=== PATIENT | female | born 1960 | race American Indian/Alaskan Native ===

== ENCOUNTER 2017-02-04 21:26 | Emergency (ER) | payer MEDICAID ==
[2017-02-04 21:26] VITALS: BMI 21.9
[2017-02-04 21:44] VITALS: BP 152/85; PULSE 110; RESP 20; TEMP 98.3; O2SAT 98
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
--- NOTE | 2017-02-05 08:51 | RAD ---
PROCEDURE: Cervical Spine Radiographs. HISTORY: Pain. COMPARISON: None. FINDINGS: BONES: Alignment maintained. No fracture. Dens Intact. DISC SPACES: Normal. SOFT TISSUES: Normal. No prevertebral soft tissue swelling. OTHER FINDINGS: None. IMPRESSION: Normal cervical spine radiographs
--- NOTE | 2017-02-05 08:52 | RAD ---
PROCEDURE: Radiographs of the pelvis and bilateral hips HISTORY: right hip pain COMPARISON: None. FINDINGS: BONES: Pelvis: Unremarkable. Right hip:There is a right hip prosthesis. There is no loosening or displacement Left hip:Unremarkable. JOINTS: Right hip: Unremarkable. Left hip: Unremarkable. Sacroiliac Joints: Unremarkable. Pubic symphysis: Unremarkable. SOFT TISSUES: Normal. OTHER FINDINGS: None. IMPRESSION: Unremarkable radiographs of the hips and pelvis.
== END 2017-02-05 01:26 | disposition home or self-care (01) ==
LOC: ED 21:26
DX: S16.1XXA Strain of muscle, fascia and tendon at neck level, initial encounter (principal); V79.9XXA Bus occupant (driver) (passenger) injured in unspecified traffic accident, initial encounter; M25.551 Pain in right hip; F17.200 Nicotine dependence, unspecified, uncomplicated; I10 Essential (primary) hypertension
CPT/HCPCS: 72050; 73522; 96372; 99285; J1885

== ENCOUNTER 2018-04-28 16:39 | Outpatient (CLI) | payer MEDICAID | END 2018-04-28 16:40 | disposition home or self-care (01) | LOC: LAB 16:39 ==

== ENCOUNTER 2018-05-24 09:45 | Emergency (ER) | payer MEDICAID ==
[2018-05-24 10:12] VITALS: TEMP 98
[2018-05-24] MEDS ORDERED: Oxymetazoline 0.05% Nasal Spray (30 ml) NS STA (10:16)
--- NOTE | 2018-05-24 10:24 | ED PDOC ---
Arrival/HPI - General Chief Complaint: ENT Problem Time Seen by Provider: 05/24/18 09:55 Historian: Patient - History of Present Illness Narrative History of Present Illness (Text): 05/24/18 10:21 57 year old female, with past medical history of seizure and asthma, presents to the ED for evaluation of epistaxis since past 1 hour. Patient reports waking with the symptoms and denies any trauma or irritation to the nares prior to onset. She denies being on any blood thinners or having family hx of coagulation disorders. Patient denies any other associated somatic complaints. Patient denies any fevers, chills, headache, dizziness, chest pain, shortness of breath, dyspnea on exertion, cough, abdominal pain, nausea, vomiting, diarrhea, back pain, neck pain, or any other complaints. PMD: Dr. Bennett Time/Duration: 1 hour Symptom Onset: Gradual Symptom Course: Unchanged Activities at Onset: Light Context: Home Past Medical History - Provider Review Nursing Documentation Reviewed: Yes - Infectious Disease Hx of Infectious Diseases: None - Tetanus Immunization Tetanus Immunization: Unknown - Past Medical History Past Medical History: Non-Contributing - Cardiac Hx Hypertension: Yes - Pulmonary Hx Chronic Obstructive Pulmonary Disease (COPD): Yes - Neurological Hx Seizures: Yes - HEENT Hx Cataracts: Yes - Renal Hx Kidney Stones: Yes - Endocrine/Metabolic Hx Endocrine Disorders: No - Hematological/Oncological Hx Anemia: Yes - Integumentary Hx Eczema: Yes - Musculoskeletal/Rheumatological Hx Back Pain: Yes Hx Falls: Yes Hx Fractures: Yes Hx Gout: Yes - Gastrointestinal Hx Gastrointestinal Disorders: Yes Hx Constipation: Yes Other/Comment: Umbilical hernia. - Genitourinary/Gynecological Hx Incontinence: Yes Hx Urinary Tract Infection: Yes - Psychiatric Hx Anxiety: Yes Hx Depression: Yes Hx Substance Use: No - Past Surgical History Past Surgical History: Non-Contributing - Surgical History Other/Comment: umbilical hernia - Anesthesia Hx Anesthesia: Yes Hx Anesthesia Reactions: No Hx Malignant Hyperthermia: No - Suicidal Assessment Feels Threatened In Home Enviroment: No Family/Social History - Physician Review Nursing Documentation Reviewed: Yes Family/Social History: No Known Family HX Smoking Status: Current Some Days Smoker Hx Alcohol Use: No Hx Substance Use: No Hx Substance Use Treatment: No Allergies/Home Meds Allergies/Adverse Reactions: Allergies chocolate flavor Allergy (Verified 05/24/18 10:12) ITCHING egg Allergy (Verified 05/24/18 10:12) ITCHING FISH Allergy (Verified 05/24/18 10:12) ANAPHYLAXIS lemon Allergy (Verified 05/24/18 10:12) VOMITING orange Allergy (Verified 05/24/18 10:12) ITCHING shellfish derived Allergy (Verified 05/24/18 10:12) ANAPHYLAXIS tomato Allergy (Verified 05/24/18 10:12) HEADACHE Home Medications: Home Meds Medication Instructions Recorded Confirmed RX: Divalproex [Depakote DR 250 mg PO HS 04/18/13 07/29/17 (*BID*)] RX: Montelukast [Singulair] 10 mg PO DAILY 10/18/14 07/29/17 Albuterol HFA [Ventolin HFA 90 1 puff IH BID 07/29/17 07/29/17 mcg/actuation (8 g)] Allopurinol [Zyloprim] 100 mg PO DAILY 07/29/17 07/29/17 Alprazolam [Xanax] 0.25 mg PO TID 07/29/17 07/29/17 Cefdinir [Omnicef] 300 mg PO Q12 07/29/17 07/29/17 Cyclobenzaprine [Cyclobenzaprine 10 mg PO TID 07/29/17 07/29/17 HCl] Fluticasone/Salmeterol 250/50 1 dsk IH DAILY 07/29/17 07/29/17 [Advair Diskus] Gabapentin [Neurontin] 300 mg PO TID 07/29/17 07/29/17 Ketoconazole 2% Shampoo [Nizoral 1 bottle TP QWK 07/29/17 07/29/17 2%] Mupirocin [Centany] 2 appl TP DAILY 07/29/17 07/29/17 Oxybutynin Chloride [Oxybutynin 10 mg PO DAILY 07/29/17 07/29/17 Chloride ER] RX: Loratadine [Claritin] 10 mg PO DAILY 07/29/17 07/29/17 Zolpidem [Ambien] 10 mg PO HS 07/29/17 07/29/17 levETIRAcetam [Keppra] 500 mg PO BID 07/29/17 07/29/17 oxyCODONE/Acetaminophen [Percocet 1 tab PO TID PRN 07/29/17 07/29/17 5/325 mg Tab] Review of Systems - Physician Review All systems were reviewed & negative as marked: Yes - Review of Systems Constitutional: absent: Fevers Eyes: absent: Vision Changes, Photophobia ENT: Epistaxis. absent: Hearing Changes, Tinnitus, Voice Changes, Sore Throat, Rhinorrhea, Sinus Congestion Respiratory: absent: SOB, Cough Cardiovascular: absent: Chest Pain Gastrointestinal: absent: Abdominal Pain, Diarrhea, Nausea, Vomiting Genitourinary Female: absent: Dysuria, Urine Output Changes Musculoskeletal: absent: Back Pain, Neck Pain Skin: absent: Rash Neurological: absent: Headache, Dizziness Psychiatric: absent: Anxiety Physical Exam Vital Signs Reviewed: Yes Vital Signs Temp Pulse Resp BP Pulse Ox 05/24/18 10:00 98 F 108 H 20 147/84 99 Temperature: Afebrile Blood Pressure: Normal Pulse: Tachycardic Respiratory Rate: Normal Appearance: Positive for: Well-Appearing, Non-Toxic, Comfortable Pain Distress: None Mental Status: Positive for: Alert and Oriented X 3 - Systems Exam Head: Present: Atraumatic, Normocephalic Pupils: Present: PERRL Extroacular Muscles: Present: EOMI Conjunctiva: Present: Normal Mouth: Present: Moist Mucous Membranes Pharnyx: Present: Normal, Other (no posterior orypharyngeal blood noted). No: ERYTHEMA, EXUDATE Nose (External): Present: Atraumatic Nose (Internal): Present: Epistaxis (noted to left anterior posterior naris), Other (No posterior oropharyngeal bleeding, no bleeding to right nare noted.). No: Engorged, Edematous, Boggy, Clear Mucous, Purulent Mucous, Septal Deviation, Septal Hematoma Neck: Present: Normal Range of Motion. No: Meningeal Signs Respiratory/Chest: Present: Clear to Auscultation, Good Air Exchange. No: Respiratory Distress, Accessory Muscle Use Cardiovascular: Present: Regular Rate and Rhythm, Normal S1, S2. No: Murmurs Abdomen: No: Tenderness, Distention, Peritoneal Signs Upper Extremity: Present: Normal Inspection. No: Cyanosis, Edema Lower Extremity: Present: Normal Inspection. No: Edema Neurological: Present: GCS=15, Speech Normal Skin: Present: Warm, Dry, Normal Color. No: Rashes Psychiatric: Present: Alert, Oriented x 3, Normal Insight, Normal Concentration Medical Decision Making ED Course and Treatment: 05/24/18 10:16 Impression: 57 year old female presents to the ED for evaluation of epistaxis. No trauma or fall. No coagulative disorder hx. no blood thinners. Differential Diagnosis included but are not limited to: Epistaxis Plan: -- Labs -- Afrin -- Reassess and disposition Prior Visits: Notes and results from previous visits were reviewed. Progress Notes: labs unremarkable. Afrin given without much improvement. No notable site of bleeding seen. L rhino rocket placed w/ good hemostasis. 4.5 size, pt tolerated procedure well No blood noted in posterior pharynx after placement. given strict return precautions, abx and followup. Pt agreeable to plan. - Medication Orders Current Medication Orders: Discontinued Medications Oxymetazoline HCl (Afrin 0.05%) 0.5 ml NS STAT STA Stop: 05/24/18 10:17 - Procedure PROCEDURE NOTE (Text): 05/24/18 11:36 PROCEDURE: EPISTAXIS MANAGEMENT Performed by the emergency provider Consent: Informed consent was obtained after discussion of the risks, benefits, and alternatives to the procedure. Timeout: A timeout to verify the correct patient, procedure, and site was performed immediately prior to the procedure. Indication: Nasal bleeding control Location: left naris Medication: Afrin was used prior Bleeding Source: Left ANTERIOR posterior bleeding Cautery: No Packin.5 cm anterior nasal packing Post-procedure: Good hemostasis. The patient was observed following procedure and no repeat episode of bleeding was noted. Patient tolerated the procedure well with no immediate complications. Procedures - Time-Out Type of Procedure: Epistaxis - Scribe Statement The provider has reviewed the documentation as recorded by the Scribe Ana Palacios. All medical record entries made by the Abyibe were at my direction and per sonally dictated by me. I have reviewed the chart and agree that the record accurately reflects my personal performance of the history, physical exam, medical decision making, and the department course for this patient. I have also personally directed, reviewed, and agree with the discharge instructions and disposition. Disposition/Present on Arrival - Present on Arrival Any Indicators Present on Arrival: No History of DVT/PE: No History of Uncontrolled Diabetes: No Urinary Catheter: No History of Decub. Ulcer: No History Surgical Site Infection Following: None - Disposition Have Diagnosis and Disposition been Completed?: Yes Diagnosis: Anterior epistaxis Disposition: HOME/ ROUTINE Disposition Time: 11:27 Condition: GOOD Discharge Instructions (ExitCare): Nosebleeds (DC) Additional Instructions: TARA CARRILLO, thank you for letting us take care of you today. Your provider was Pedro Pardo and you were treated for NOSE BLEED. The emergency medical care you received today was directed at your acute symptoms. If you were prescribed any medication, please fill it and take as directed. It may take several days for your symptoms to resolve. Return to the Emergency Department if your symptoms worsen, do not improve, or if you have any other problems. Please contact your doctor or call one of the physicians/clinics you have been referred to that are listed on the Patient Visit Information form that is included in your discharge packet. Bring any paperwork you were given at discharge with you along with any medications you are taking to your follow up visit. Our treatment cannot replace ongoing medical care by a primary care provider outside of the emergency department. Thank you for allowing the [facility] team to be part of your care today. If you had an X-Ray or CT scan: A Radiologist will review the ED reading if any change in treatment is needed we will contact you. If you had a blood, urine, or wound culture: It will take several days for the results, if any change in treatment is needed we will contact you. If you had an STI test: It will take 48 hours for the results. Please call after 1 week if you have not heard back. Prescriptions: Amoxicillin/Clavulanate [Augmentin 875 MG-125 MG] 1 tab PO BID 7 Days #14 tab Referrals: [facility] [Outside] - Follow up with primary [facility] [facility] [Outside] - [place] up with [place] [facility] [place] [facility] [place] - Follow up with primary Jay Bennett DO [Family Provider] - Follow up with primary Tate Novak DO [Doctor Osteopathy] - Follow up with primary Forms: [employer] (Arabic) Time Seen by Provider: 05/24/18 09:55 Chief Complaint (Nursing): ENT Problem
[2018-05-24 10:40] LABS: BASO # 0.07 K/mm3 (0.0-2.0); BASO % 0.8 % (0.0-3.0); EOS # 0.2 (0.0-0.7); EOS % 2.7 % (1.5-5.0); HEMOGLOBIN 13.1 g/dL (12.0-16.0); LYMPH # 3.4 (1.2-3.4); LYMPH % 40.6 % (22.0-35.0); MEAN CELL VOLUME 93.1 fl (80.0-105.0); MEAN CORPUSCULAR HEMOGLOBIN 32.2 pg (25.0-35.0); MEAN CORPUSCULAR HGB CONC 34.6 g/dl (31.0-37.0); MEAN PLATELET VOLUME 9.7 fl (7.0-11.0); MONO # 0.6 (0.1-0.6); RBC 4.07 10^6/uL (3.5-6.1); RED CELL DISTRIBUTION WIDTH 13.6 % (11.5-14.5); WHITE BLOOD COUNT 8.3 10^3/uL (4.5-11.0)
[2018-05-24 10:48] LABS: INR 1.07; PROTHROMBIN TIME 12.1 SECONDS (9.4-12.5)
[2018-05-24 10:50] LABS: ALB/GLOB RATIO 1.3 (1.1-1.8); ALBUMIN 4.3 g/dL (3.0-4.8); ALT/SGPT 15 U/L (7-56); AST/SGOT 29 U/L (14-36); BLOOD UREA NITROGEN 9 mg/dL (7-21); CALCIUM 9.2 mg/dL (8.4-10.5); GFR NON-AFRICAN AMERICAN > 60
[2018-05-24 11:55] VITALS: BP 132/76; PULSE 91; RESP 18; O2SAT 98
== END 2018-05-24 11:53 | disposition home or self-care (01) ==
LOC: ED 09:45
DX: R04.0 Epistaxis (principal); I10 Essential (primary) hypertension; J44.9 Chronic obstructive pulmonary disease, unspecified

== ENCOUNTER 2018-05-26 07:27 | Outpatient (CLI) | payer MEDICAID | END 2018-05-26 07:28 | disposition home or self-care (01) | LOC: CARDIO 07:27 ==

== ENCOUNTER 2018-07-05 12:36 | Emergency (ER) | payer MEDICAID, MEDICARE ==
[2018-07-05 12:52] VITALS: RESP 18; TEMP 97.3; BMI 24.0
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
--- NOTE | 2018-07-05 14:30 | ED PDOC ---
Arrival/HPI - General Chief Complaint: Lower Extremity Problem/Injury Time Seen by Provider: 07/05/18 12:39 - History of Present Illness Narrative History of Present Illness (Text): 57 y/o female with PMH of HTN presents to the ED c/o bilateral dorsal foot pain s/p injury yesterday. Pt states she dropped a 16ounce [employer] soup can on her right foot and it bounced to her left foot. Pt has had difficulty walking since. Pain is worst to her right dorsal 4th digit. Has not taken any medication for pain. Denies fever, chills, numbness, parethesias, weakness, pain elsewhere, or any other associated symptoms. Past Medical History - Infectious Disease Hx of Infectious Diseases: None - Tetanus Immunization Tetanus Immunization: Unknown - Past Medical History Past Medical History: Non-Contributing - Cardiac Hx Hypertension: Yes - Pulmonary Hx Asthma: Yes Hx Chronic Obstructive Pulmonary Disease (COPD): Yes - Neurological Hx Seizures: Yes - HEENT Hx Cataracts: Yes - Renal Hx Kidney Stones: Yes - Endocrine/Metabolic Hx Endocrine Disorders: No - Hematological/Oncological Hx Anemia: Yes - Integumentary Hx Eczema: Yes - Musculoskeletal/Rheumatological Hx Back Pain: Yes Hx Falls: Yes Hx Fractures: Yes Hx Gout: Yes - Gastrointestinal Hx Gastrointestinal Disorders: Yes Hx Constipation: Yes Other/Comment: Umbilical hernia. - Genitourinary/Gynecological Hx Incontinence: Yes Hx Urinary Tract Infection: Yes - Psychiatric Hx Anxiety: Yes Hx Depression: Yes Hx Substance Use: No - Past Surgical History Past Surgical History: Non-Contributing - Surgical History Other/Comment: umbilical hernia - Anesthesia Hx Anesthesia: Yes Hx Anesthesia Reactions: No Hx Malignant Hyperthermia: No - Suicidal Assessment Feels Threatened In Home Enviroment: No Family/Social History Smoking Status: Heavy Smoker > 10 Cigarettes Daily Hx Alcohol Use: No Hx Substance Use: No Hx Substance Use Treatment: No Allergies/Home Meds Allergies/Adverse Reactions: Allergies chocolate flavor Allergy (Verified 05/24/18 10:12) ITCHING egg Allergy (Verified 05/24/18 10:12) ITCHING FISH Allergy (Verified 05/24/18 10:12) ANAPHYLAXIS lemon Allergy (Verified 05/24/18 10:12) VOMITING orange Allergy (Verified 05/24/18 10:12) ITCHING shellfish derived Allergy (Verified 05/24/18 10:12) ANAPHYLAXIS tomato Allergy (Verified 05/24/18 10:12) HEADACHE Home Medications: Home Meds Medication Instructions Recorded Confirmed Divalproex [Depakote DR (*BID*)] 250 mg PO HS 04/18/13 05/26/18 Montelukast [Singulair] 10 mg PO DAILY 10/18/14 05/26/18 Albuterol HFA [Ventolin HFA 90 1 puff IH BID 07/29/17 05/26/18 mcg/actuation (8 g)] Allopurinol [Zyloprim] 100 mg PO DAILY 07/29/17 05/26/18 Alprazolam [Xanax] 0.25 mg PO TID 07/29/17 05/26/18 Cyclobenzaprine [Cyclobenzaprine 10 mg PO TID 07/29/17 05/26/18 HCl] Fluticasone/Salmeterol 250/50 1 dsk IH DAILY 07/29/17 05/26/18 [Advair Diskus] Gabapentin [Neurontin] 300 mg PO TID 07/29/17 05/26/18 Ketoconazole 2% Shampoo [Nizoral 1 bottle TP QWK 07/29/17 05/26/18 2%] Loratadine [Claritin] 10 mg PO DAILY 07/29/17 05/26/18 Oxybutynin Chloride [Oxybutynin 10 mg PO DAILY 07/29/17 05/26/18 Chloride ER] Zolpidem [Ambien] 10 mg PO HS 07/29/17 05/26/18 oxyCODONE/Acetaminophen [Percocet 1 tab PO TID PRN 07/29/17 05/26/18 5/325 mg Tab] Atorvastatin [Lipitor] 20 mg PO DAILY 05/26/18 05/26/18 Umeclidinium [place] [Incruse 62.5 mcg IH DAILY 05/26/18 05/26/18 Ellipta] Physical Exam Vital Signs Temp Pulse Resp BP Pulse Ox 07/05/18 12:52 97.3 F L 104 H 18 160/91 H 98 Medical Decision Making ED Course and Treatment: 07/05/18 14:29 Spoke with podiatry resident who reviewed diagnostic imaging. Recommends araceli taping toe and surgical shoe placement - RAD Interpretation Radiology Orders: 07/05/18 13:00 FOOT LEFT 3 VIEWS ROUTINE [RAD] Stat FOOT RIGHT 3 VIEWS ROUTINE [RAD] Stat - Medication Orders Current Medication Orders: Discontinued Medications Ketorolac Tromethamine (Toradol) 60 mg IM STAT STA Stop: 07/05/18 13:06 Last Admin: 07/05/18 13:45 Dose: 60 mg MAR Pain Assessment Document 07/05/18 13:45 DEMETRIS (Rec: 07/05/18 14:05 DEMETRIS [id number]) Pain Reassessment Is this a pain reassessment? No Sleep Is patient sleeping during reassessment? No Presence of Pain Presence of Pain Yes IM Administration Charges Document 07/05/18 13:45 DEMETRIS (Rec: 07/05/18 14:05 DEMETRIS [id number]) Charges for Administration # of IM Administrations 1 Disposition/Present on Arrival - Present on Arrival History of DVT/PE: No History of Uncontrolled Diabetes: No Urinary Catheter: No History of Decub. Ulcer: No History Surgical Site Infection Following: None - Disposition Diagnosis: Toe fracture, right Disposition: HOME/ ROUTINE Condition: GOOD Discharge Instructions (ExitCare): Toe Fracture (DC) Additional Instructions: Bear weight only on heel of right foot Keep surgical shoe on while walking Keep araceli splint on until podiatry followup Followup with podiatry within 2 days Followup with primary within 2 days Return to ER with any new/worsening symptoms Prescriptions: Ibuprofen [Motrin Tab] 600 mg PO Q8 #30 tab Referrals: Sissy Christine MD [Medical Doctor] - Follow up with primary [facility] [Outside] - Follow up with primary [facility] [place] [Outside] - Follow up with primary Forms: [employer] (Spanish), WORK NOTE
[2018-07-05 14:49] VITALS: BP 143/92; PULSE 94; O2SAT 96
== END 2018-07-05 15:56 | disposition home or self-care (01) ==
LOC: ED 12:36
DX: S92.511A Displaced fracture of proximal phalanx of right lesser toe(s), initial encounter for closed fracture (principal); W20.8XXA Other cause of strike by thrown, projected or falling object, initial encounter; F17.210 Nicotine dependence, cigarettes, uncomplicated; I10 Essential (primary) hypertension; J44.9 Chronic obstructive pulmonary disease, unspecified
CPT/HCPCS: 73630; 96372; 99283; J1885

== ENCOUNTER 2018-08-31 10:01 | Outpatient (CLI) | payer MEDICARE, MEDICAID | END 2018-08-31 10:02 | disposition home or self-care (01) | LOC: RAD 10:01 ==

== ENCOUNTER 2018-09-10 06:43 | Day surgery (SDC) | payer MEDICARE, MEDICAID ==
[2018-09-10] MEDS ORDERED: Propofol 10 mg/ml Inj (20 ML) ONE (08:35)
[2018-09-10] MEDS ORDERED: Midazolam 2 MG/2 ML VIAL ONE ×3 (08:40→08:58)
[2018-09-10] MEDS ORDERED: Etomidate 20 mg/10ml Inj IV ONE ×2 (08:46→09:08)
[2018-09-10] MEDS ORDERED: Sodium Chloride 0.9% 1,000 ML IV SCH (09:30)
[2018-09-10 11:28] VITALS: BMI 24.0
[2018-09-10 12:41] VITALS: BP 128/74; PULSE 80; RESP 18; TEMP 97.8; O2SAT 93
== END 2018-09-10 11:44 | disposition home or self-care (01) ==
LOC: ENDO 06:43
PROVIDERS: ATTEND Internal Medicine Gastroenterology
DX: Z12.11 Encounter for screening for malignant neoplasm of colon (principal); Z80.0 Family history of malignant neoplasm of digestive organs; K63.5 Polyp of colon; K57.30 Diverticulosis of large intestine without perforation or abscess without bleeding; K64.1 Second degree hemorrhoids
CPT/HCPCS: 45385; 88305; J2250; J2405; J3010; J7030